=== PATIENT | female | born 1975 | race Caucasian/White ===

== ENCOUNTER → 2017-03-23 | Outpatient (REF) | payer OTHER ==
[~2017-03-23] MED LIST: PERC5TAB6 PO; TAMS0.4C2 PO
[2017-03-23 13:54] LABS: BASO % 0.4 % (0.0-1.0); LARGE UNSTAINED CELL # 0.1 K/mm3 (0.0-0.4); LARGE UNSTAINED CELL % 2.2 % (0.0-4.0); LYMPH % 35.3 % (24.0-44.0); MEAN CORPUSCULAR HEMOGLOBIN 30.8 pg (27.0-33.0); MEAN CORPUSCULAR HGB CONC 34.3 g/dl (32.0-36.5); MEAN CORPUSCULAR VOLUME 89.8 fl (80.0-96.0); MONO # 0.2 K/mm3 (0.0-0.8); MONO % 3.9 % (0.0-5.0); NEUTROPHILS # 3.1 K/mm3 (1.8-7.7); NEUTROPHILS % 57.2 % (36.0-66.0); PLATELET COUNT, AUTOMATED 280 k/mm3 (150-450); RED CELL DISTRIBUTION WIDTH 13.2 % (11.5-14.5); WHITE BLOOD COUNT 5.4 K/mm3 (4.0-10.0)
[2017-03-23 14:21] LABS: ALBUMIN 4.5 GM/DL (3.2-5.2); ALBUMIN/GLOBULIN RATIO 1.41 (1.00-1.93); ALKALINE PHOSPHATASE 61 U/L (45-117); ALT/SGPT 25 U/L (12-78); ANION GAP 7 MEQ/L (8-16); AST/SGOT 14 U/L (15-37); BILIRUBIN,TOTAL 0.6 MG/DL (0.2-1.0); BLOOD UREA NITROGEN 13 MG/DL (7-18); CALCIUM LEVEL 9.1 MG/DL (8.5-10.1); CARBON DIOXIDE LEVEL 28 MEQ/L (21-32); CHLORIDE LEVEL 103 MEQ/L (98-107); CREATININE FOR GFR 0.78 MG/DL (0.55-1.02); FREE T4 1.12 NG/DL (0.76-1.46); GLOMERULAR FILTRATION RATE > 60.0 (>58); GLUCOSE, FASTING 87 MG/DL (70-105); IMMUNOGLOBULIN G 1260 MG/DL (681-1648); IMMUNOGLOBULIN M 176 MG/DL (40-230); POTASSIUM SERUM 4.1 MEQ/L (3.5-5.1); SODIUM LEVEL 138 MEQ/L (136-145); TOTAL PROTEIN 7.7 GM/DL (6.4-8.2)
[2017-03-23 14:50] LABS: ERYTHROCYTE SEDIMENTATION RATE 8 mm/hr (0-20)
== END ==
LOC: M SFHCPLAZ 09:59
PROVIDERS: ATTEND Internal Medicine Infectious Disease
DX: M19.049 Primary osteoarthritis, unspecified hand (principal); E04.1 Nontoxic single thyroid nodule; R63.4 Abnormal weight loss

== ENCOUNTER 2017-04-18 11:09 | Emergency (ER) | payer MEDICAID, OTHER ==
[~2017-04-18] VITALS: Ht 165.1 cm; Wt 64.9 kg
[2017-04-18 11:10] VITALS: BP 106/61
[2017-04-18] MEDS ORDERED: ALPR1TAB3 PO (11:26)
[2017-04-18] MEDS ORDERED: ADDE10CA PO (11:26)
[2017-04-18] MEDS ORDERED: KEFL500C7 PO (13:29)
== END 2017-04-18 13:36 | disposition home or self-care (01) ==
LOC: M ED 12:01
DX: J02.0 Streptococcal pharyngitis (principal); F41.9 Anxiety disorder, unspecified; Z79.899 Other long term (current) drug therapy; Z88.2 Allergy status to sulfonamides

== ENCOUNTER → 2017-04-25 | Outpatient (REF) | payer OTHER ==
[~2017-04-25] MED LIST changes: +ADDE10CA PO; +ALPR1TAB3 PO; +KEFL500C7 PO
== END ==
LOC: M LAB REF 10:30
PROVIDERS: ATTEND Internal Medicine Endocrinology, Diabetes & Metabolism
DX: E04.1 Nontoxic single thyroid nodule (principal)

== ENCOUNTER → 2017-10-18 | Outpatient (REF) | payer OTHER, MEDICAID ==
[~2017-10-18] MED LIST changes: -ADDE10CA PO; +ADDE10CA3 PO; +KEFL500C17 PO; -KEFL500C7 PO; +PERC5TAB12 PO; -PERC5TAB6 PO
== END ==
LOC: M LABDRAW1 15:31
PROVIDERS: ATTEND Internal Medicine Endocrinology, Diabetes & Metabolism
DX: E04.2 Nontoxic multinodular goiter (principal)

== ENCOUNTER → 2018-09-28 | Outpatient (CLI) | payer OTHER | LOC: M WHC 13:24 | DX: Z12.31 Encounter for screening mammogram for malignant neoplasm of breast (principal) | CPT/HCPCS: 77067 ==

== ENCOUNTER → 2018-10-02 | Outpatient (REF) | payer OTHER, MEDICAID | LOC: M LAB REF 13:05 | DX: J02.9 Acute pharyngitis, unspecified (principal) | CPT/HCPCS: 87430 ==

== ENCOUNTER → 2018-12-07 | Outpatient (CLI) | payer OTHER ==
--- NOTE | 2018-12-07 21:23 | REP ---
Clinical: Multinodular goiter. Technique: Real time grey scale and color evaluation using linear high frequency transducer. Comparison: 10/11/2016. Findings: The thyroid gland is asymmetric and includes multiple scattered cystic and nodular components bilaterally. Isthmus measures 2 mm in width. Right lobe measures 5.4 x 1.4 x 1.2 cm and includes 10 x 9 x 10 mm solid complex vascular nodule in the mid pole with areas of calcification. 2 mm simple cyst also identified within the midpole. Left lobe measures 3.8 x 1.3 x 1.0 cm and includes 2 x 1 x 1 mm upper pole cyst, 4 x 5 x 2 mm complex cyst in the mid/upper pole, 7 x 4 x 6 mm hypoechoic nodule in the mid pole, 4 x 4 x 2 mm complex cyst in the mid/lower pole, and 4 x 4 x 2 mm hypoechoic nodule in the inferior pole. Impression: Multinodular thyroid gland with asymmetric size (right greater than left). In comparison to prior examination, the lungs vascular mass in the right lobe remains stable while the changes in the left lobe which are essentially nonspecific have slightly increased in both number and size. Electronically Signed by Costa Kim MD 12/07/2018 09:14 P
== END ==
LOC: M WHC 12:53
PROVIDERS: ATTEND Internal Medicine
DX: E04.2 Nontoxic multinodular goiter (principal)

== ENCOUNTER → 2021-03-27 | Outpatient (CLI) | payer OTHER ==
--- NOTE | 2021-03-29 07:27 | REP ---
INDICATION: E04.1 THYROID NODULE COMPARISON: 11/20/2019, 12/07/2018 TECHNIQUE: Viveros scale and color evaluation of the thyroid gland using the linear high frequency transducer. FINDINGS: Right thyroid lobe measures 4.8 x 1.8 x 1.3 cm and includes 1.0 x 1.0 x 1.0 cm midpole complex nodule with calcification and 1.6 x 1.3 x 2.0 mm cyst. Isthmus measures 2.1 mm in width. Left thyroid lobe measures 3.7 x 1.1 x 1.1 cm and includes 5.8 x 4.2 x 7.9 mm midpole complex nodule with calcification, 1.6 x 0.8 x 1.2 mm midpole cyst, and 3.2 x 1.6 x 2.8 mm midpole hypoechoic nodule. IMPRESSION: Examination is relatively unchanged when compared with prior examination and allowing for variation in technique. Largest complex partially calcified nodule in the right lobe remains stable in size. <Electronically signed by Costa Kim > 03/29/21 0723
== END ==
LOC: M WHC 13:34
DX: E04.1 Nontoxic single thyroid nodule (principal)

== ENCOUNTER → 2021-03-27 | Outpatient (CLI) | payer OTHER ==
[2021-03-27 17:44] LABS: FREE T4 0.83 NG/DL (0.76-1.46); THYROID STIMULATING HORMONE 2.41 uIU/ML (0.358-3.740)
== END ==
LOC: M PLALAB 14:13
DX: E04.1 Nontoxic single thyroid nodule (principal)

== ENCOUNTER → 2021-04-17 | Outpatient (CLI) | payer OTHER ==
--- NOTE | 2021-04-17 14:57 | REPMRS ---
Patient History The patient states she had a clinical breast exam in February 2021. No known family history of cancer. Reductions of both breasts, 2008. No Hormone Replacement Therapy Patient states no breast complaints. Patient has signed the MRS history sheet. Digital Woman Screen Mammo: April 17, 2021 - Exam #: [id number] Bilateral CC and MLO view(s) were taken. Technologist: Jelly Olmedo, Technologist Prior study comparison: September 28, 2018, bilateral digital woman screen mammo performed at [facility]. 2013, bilateral digital mammo screening bilat, performed at [facility]. FINDINGS: The breast tissue is heterogeneously dense. This may lower the sensitivity of mammography. Screening. Digital screening (2D) mammography was performed bilaterally in the CC and MLO projections. Additionally, breast tomosynthesis (3D mammography) was performed bilaterally in the CC and MLO projections. Todays exam was compared to the prior exams. By history, the patient has no complaints of a palpable breast abnormality or other significant breast complaints. The breasts are unchanged in size and shapeOnce again, dense heterogenous fibroglandular elements are seen bilaterally in a stable appearing pattern but to such a degree that the sensitivity of the mammogram in detecting cancer is decreased.. There are no nancy-soft tissue densities or spiculated masses. There is no internal architectural distortion. Once again, stable benign appearing calcifications are seen.There are no suspicious nancy-calcific clusters. Skin thickening or nipple retraction is not present. IMPRESSION: BI-RADS Category 2- Benign Findings. There is no evidence of malignant alteration of the breasts. Followup examination recommended in one year. The Volpara volumetric breast density category is C, the breasts are heterogenously dense which may obscure small masses. This mammogram was read with the assistance of Ku6,an FDA approved computer aided detection system for mammography. The lifetime Tyrer-Cuzick score is 8.5 % Negative x-ray reports should not delay surgical consultation if a dominant or clinically suspicious mass is present. Not all breast cancers can be identified by mammography. Therefore, we recommend that you continue to perform regular breast self-examination and physical examination and then promptly contact your physician of any concerns or changes. Adenosis and dense breasts may obscure an underlying neoplasm. Assessment: BI-RADS/ACR category 2 mammogram. Benign Findings. Recommendation Routine screening mammogram of both breasts in 1 year. Electronically Signed By: Mahad Gaxiola DO 04/17/21 [id number]
== END ==
LOC: M WHC 14:14
DX: Z12.31 Encounter for screening mammogram for malignant neoplasm of breast (principal); R92.1 Mammographic calcification found on diagnostic imaging of breast